=== PATIENT | male | born 1955 | race Caucasian/White ===

== ENCOUNTER → 2019-12-27 11:14 | Outpatient (BNVA) | payer OTHER, SELFPAY | PROVIDERS: PCP Internal Medicine; Visit Provider Urology | DX: Z76.89 Persons encountering health services in other specified circumstances (principal) ==

== ENCOUNTER → 2020-06-25 10:12 | Outpatient (BNVA) | payer OTHER, SELFPAY | PROVIDERS: PCP Internal Medicine; Visit Provider Urology ==

== ENCOUNTER → 2021-01-01 09:27 | Outpatient (BNVA) | payer MEDICARE, OTHER, SELFPAY | PROVIDERS: PCP Internal Medicine; Visit Provider Urology | DX: N40.1 Benign prostatic hyperplasia with lower urinary tract symptoms (principal); R97.20 Elevated prostate specific antigen [PSA] | CPT/HCPCS: Q3014 ==

== ENCOUNTER → 2021-06-29 12:02 | Outpatient (BNVA) | payer MEDICARE, OTHER, SELFPAY | PROVIDERS: PCP Internal Medicine; Visit Provider Urology | DX: N40.1 Benign prostatic hyperplasia with lower urinary tract symptoms (principal); R97.20 Elevated prostate specific antigen [PSA] | CPT/HCPCS: Q3014 ==

== ENCOUNTER → 2021-12-31 08:54 | Outpatient (BNVA) | payer MEDICARE, OTHER, SELFPAY | PROVIDERS: PCP Internal Medicine; Visit Provider Urology | DX: R97.20 Elevated prostate specific antigen [PSA] (principal); N40.2 Nodular prostate without lower urinary tract symptoms | CPT/HCPCS: 51798; 99212 ==

== ENCOUNTER → 2022-07-07 08:33 | Outpatient (BNVA) | payer MEDICARE, OTHER, SELFPAY | PROVIDERS: PCP Internal Medicine; Visit Provider Urology | DX: N40.2 Nodular prostate without lower urinary tract symptoms (principal) | CPT/HCPCS: 51798; 99212 ==

== ENCOUNTER 2023-01-11 08:33 | Outpatient (AMB) | payer MEDICARE, OTHER, SELFPAY ==
--- NOTE | 2023-01-11 08:36 | A.OFFVIS_ITS ---
Intake Intake Visit Reasons: 6m/PSA/MRI(psa?) Intake Note: Patient is present for PSA & MRI Results: Results: 05/25/22- Total PSA: 4.0 Free PSA: 0.6 Urology Med: Finasteride Antibiotic Allergy: Penicillin Blood Thinner: None Advertising Assistant Manager Required: No Accompanied by: Self / Same As Patient Allergies penicillin V Allergy (Unknown, Verified 01/11/23 08:36) Unknown HPI HPI Comments History of Present Illness Details Julio is a very pleasant male. He is a patient of Dr. Antonio. He is seen for the following urologic conditions - BPH - elevated PSA PSA rise to 5.6 Prostate MRI with 1.2 cm lesion Recommend targeted MRI ultrasound prostate fusion biopsy Procedure discussed Will be organized Elevated PSA/Abnormal GALLITO: He presents for further evaluation of elevated PSA. Current management is medication with finasteride Laboratory investigations include a total PSA evaluation - 12/30 6.3, 11% free no volume done - 06/30 4.9 F 16%, 12/31 5.3 - 08/01 4.8, 11/01 4.3 14%, 12/01 Urine DNA score < 20 so average risk for CaP, 01/31 5.2 19%, 06/02 5.1 20%, 12/02 4.4, 06/03 4.9, 01/03 4.5 17%, 06/04 4.3, 12/04 4.6, 07/05 4.0 F 0.6 (15%), 01/05 5.6 Imaging investigations include a transrectal ultrasound No RBUS - 04/30 Prostate Volume 70gm, PVR 250cc - MRI 1.2 cm PI-RADS 4 lesion - R PZ PL, R TZ Mid A TRUS biopsy has not been performed His current IPSS IPSS Score 16 Symptoms include 04/02 , frequency, urgency, weak stream, nocturia, x 2, and are worsening 12/31 , incomplete emptying, weak stream, nocturia, and are improving. Therapeutic plan will be targeted prostate biopsy [facility] Medical History Bladder outlet obstruction Difficulty in urination Elevated PSA Enlarged prostate Feeling of incomplete bladder emptying Hernia Melanoma UTI (urinary tract infection) Weak urinary stream Surgical History History of surgery Family History Other Prostate cancer Review of Systems Const Denies chills and Denies fever(s) Card Reports no additional complaints and Denies syncope Resp Denies cough GI Denies abdominal pain and Denies heartburn Reports as per HPI and Denies change in libido Neuro Denies syncope Psych Denies change in libido Endo Denies change in libido Physical Exam Const General: cooperative, healthy appearing, comfortable and no acute distress Orientation/consciousness: patient oriented x3 HEENT Face and sinus: Yes normal facial exam Mouth: moist mucous membranes Neck Neck: Yes normal visual inspection, Yes full ROM and Yes trachea midline Chest Chest palpation & inspection: normal inspection of the chest Resp Effort & Inspection: normal respiratory effort, able to speak in complete sentences and no respiratory distress GI Inspection: Yes normal to inspection Back/Spine/Pelvis Cervical Spine: normal cervical lordosis Thoracic/Lumbar Spine: thoracic and lumbar spine normal to inspection Skin General skin exam: no rashes or lesions noted Neuro General: patient oriented x3, gait normal, tone normal and moves all extremities Extrem General: Yes normal to inspection and Yes capillary refill normal Assessment & Plan Assessment & Plan (1) Prostate nodule: Code(s): N40.2 - Nodular prostate without lower urinary tract symptoms (2) Elevated PSA: Code(s): R97.20 - Elevated prostate specific antigen [PSA] Plan Risks, benefits and alternatives to therapy were discussed. These include but are not limited to infection, bleeding, damage to local organs and tissues, need for further interventions. Anesthetic risks regarding cardiac arrhythmia, blood clots, and potential mortality were discussed. The patient understands the typical recovery time and the outpatient nature of the procedure. After consideration of these risks the patient gives full informed consent and they wish to move ahead with the procedure. MRI ultrasound fusion biopsy Patient Instructions: Imaging studies, laboratory and physical exam results were discussed and reviewed in detail. No major barriers to patient understanding were identified. An opportunity to ask questions regarding the treatment plan was provided. All questions were answered. The patient expressed understanding and agreement with the above treatment plan. The patient is aware they should contact our office by phone for worsening of their current condition or the appearance of new urologic symptoms. Compliance is encouraged with any medications and followup testing that is ordered. It is a privilege to participate in the urologic care of your patient. If you have any questions or concerns regarding treatment for the above conditions, or other urologic issues, please do not hesitate to contact me. The office telephone contact is [phone]. This note is constructed using voice recognition software. While every effort has been made to ensure accuracy shoe dresser errors may have been included. Yours sincerely, Dr Gideon Ng MD, ANH [facility] - Urology Providers of Expert, Compassionate Care for the Genitourinary System Coding Level of Care Code Est Pt Level 4 (07865) Diagnoses Prostate nodule N40.2 Elevated PSA R97.20
== END 2023-01-11 09:27 | disposition home or self-care (01) ==
PROVIDERS: Visit Provider Urology
DX: N40.2 Nodular prostate without lower urinary tract symptoms (principal); R97.20 Elevated prostate specific antigen [PSA]
CPT/HCPCS: 99214

== ENCOUNTER → 2023-01-11 08:33 | Outpatient (BNVA) | payer MEDICARE, OTHER, SELFPAY | PROVIDERS: Visit Provider Urology | DX: N40.2 Nodular prostate without lower urinary tract symptoms (principal); R97.20 Elevated prostate specific antigen [PSA] | CPT/HCPCS: 99212 ==

== ENCOUNTER 2023-03-06 09:18 | Day surgery (SDC) | payer MEDICARE, OTHER, SELFPAY ==
--- NOTE | 2023-03-03 10:54 | HO.ANESPROP2 ---
Documented by User: Lara Rudolph NP 03/03/23 10:54 HPI - Anesthesia Eval Consult details Narrative: 67yo M for Targeted Prostate Needle Biopsy PMFSH Active Problems Active Problems: All Active Problems (Updated 03/02/23 @ 10:01 by Apple Triplett, TIBURCIO) Prostate nodule (Acute) Feeling of incomplete bladder emptying (Acute) Urinary urgency (Acute) Weak urinary stream (Acute) BPH loc w urin obs/LUTS (Acute) Elevated PSA (Acute) Past Medical History Medical History Hx of polycythemia vera Leg fracture, right Hx of melanoma of skin Peptic ulcer Difficulty in urination Enlarged prostate UTI (urinary tract infection) Hernia Melanoma Weak urinary stream Feeling of incomplete bladder emptying Bladder outlet obstruction Elevated PSA Family History Family History Other Prostate cancer Surgical History Surgical History Hx of wisdom tooth extraction History of facial surgery H/O esophagogastroduodenoscopy Hx of colonoscopy Hx of hernia repair Social History Social History Patient Tobacco Use Status: Never used Tobacco Are you DNR?: No Advance Directives: No Advance Directives Information Provided: Yes Nutrition Risks: No Nutritional Risk Meds Allergies Allergy/AdvReac Type Severity Reaction Status Date / Time penicillin V Allergy Intermediate Hives Verified 03/06/23 09:55 Home Medications Medication Instructions Recorded Confirmed Last Taken Type omeprazole 20 mg capsule,delayed 20 mg PO BID 06/25/20 03/02/23 03/05/23 History release Assessment and Plan Assessment Anesthesia Assessment: Chart Reviewed Documented by User: La Nena Adler MD 03/06/23 10:39 PMFSH Active Problems Active Problems: All Active Problems (Updated 03/02/23 @ 10:01 by Apple Triplett RN) Prostate nodule (Acute) Feeling of incomplete bladder emptying (Acute) Urinary urgency (Acute) Weak urinary stream (Acute) BPH loc w urin obs/LUTS (Acute) Elevated PSA (Acute) H/o Polycythemia vera. Has therapeutic phlebotomy. Used to be every 2 months but condition has improved. Last phlebotomy 9 months ago Past Medical History Medical History Hx of polycythemia vera Leg fracture, right Hx of melanoma of skin Peptic ulcer Difficulty in urination Enlarged prostate UTI (urinary tract infection) Hernia Melanoma Weak urinary stream Feeling of incomplete bladder emptying Bladder outlet obstruction Elevated PSA Family History Family History Other Prostate cancer Family history of problems with anesthesia: No Surgical History Surgical History Hx of wisdom tooth extraction History of facial surgery H/O esophagogastroduodenoscopy Hx of colonoscopy Hx of hernia repair History of Problems with Anesthesia: No Social History Social History Patient Tobacco Use Status: Never used Tobacco Are you DNR?: No Advance Directives: No Advance Directives Information Provided: Yes Nutrition Risks: No Nutritional Risk Meds Allergies Allergy/AdvReac Type Severity Reaction Status Date / Time penicillin V Allergy Intermediate Hives Verified 03/06/23 09:55 Home Medications Medication Instructions Recorded Confirmed Last Taken Type omeprazole 20 mg capsule,delayed 20 mg PO BID 06/25/20 03/02/23 03/05/23 History release Exam Height,Weight and Vital Signs: Height 5 ft 6 in Weight 58.967 kg Vital Signs Temp Pulse Resp BP Pulse Ox O2 Del Method 03/06/23 09:46 97.7 F 92 17 147/93 H 99 Room Air Airway Mallampati Class: II TM Dist: >3cm Neck ROM: Full Loose/Missing/Broken Teeth: Yes (Missing molars-extracted) Heart: RRR Lungs: CTAB Assessment and Plan Assessment Anesthesia Assessment: Anesthesia Plan Discussed Final Anesthetic Review Family History of Problems with Anesthesia: No History of Problems with Anesthesia: No NPO: Yes ASA Class: II Final Preanesthetic Review: No Changes in Pt Med Stat, Meds/Allgs Chart Reviewed, Consent Obtained/Reviewed and Anes Risks/Benef Reviewed Patient Risk: Intermediate Procedure Risk: Low Assessment/Block/Sedation in SS: Assess/Block/Sedation-SS Anesthetic Plan Anesthetic Plan: GA and TIVA Disposition: Standard PACU
[2023-03-06 09:31] VITALS: BMI 21.0
[2023-03-06 09:46] VITALS: BP 147/93; PULSE 92; RESP 17; TEMP 36.5; O2SAT 99
[2023-03-06] MEDS: Lactated Ringers 1,000 ML 100 ML IVCONT (09:55)
[2023-03-06] MEDS: levoFLOXacin 500 MG TABLET PO (09:55)
--- NOTE | 2023-03-06 10:26 | MHC.SHP ---
Pre-Procedural Eval Section A Date of Service: 03/06/23 The patient is an INPATIENT: No Changes since office visit: No Cold of Flu in the past 2 weeks, No New Medical Problems, No Changes in Medication and No Patient answered all questions The History & Physical has been completed within 30 days and I have reviewed it.: No Section B Chief Complaint: Elevated prostate specific antigen [PSA] Details of Present Illness: prior negative biopsy Relevant Social History: None Present Medications: see Short Stay Collaborative assessment Medical History: No relevant PMH History of Previous Operations: No relevant previous surgery Allergies: Allergies Allergy/AdvReac Type Severity Reaction Status Date / Time penicillin V Allergy Intermediate Hives Verified 03/06/23 09:55 Review of Systems Sugical H&P ROS: Negative: Constitution, Cardiovascular, Respiratory, Neurological, Psychiatric, Hem-Onc, Allergic/Immunologic, Gastrointestinal, Genitourinary, Musculoskeletal, Integumentary, Endocrine and Eyes/Ears/Nose/Throat Exam Surgical H&P Exam: Normal: HEENT, Normal: Heart, Normal: Lungs, Normal: Extremities, Normal: Abdomen, Normal: Skin and Normal: Neurological Plan Diagnosis/Plan: Unchanged (targeted prostate biopsy) I have reviewed the history and physical and performed a pertinent physical examination on my patient. No changes have occurred unless specified. Time Spent With Patient Time: Total time managing care of this patient today ____ minutes.
[2023-03-06 12:30] VITALS: BP 116/78; PULSE 84; RESP 18; TEMP 36.6; O2SAT 98
--- NOTE | 2023-03-06 12:34 | P.OP_ITS ---
Operative Note Operative Note Date of Service: 03/06/23 Narrative: Preoperative diagnosis: Elevated PSA Postoperative diagnosis: Elevated PSA Procedure: 1. transrectal ultrasound-guided pudendal nerve block 2. MRI-US fusion image registration performed 3. transperineal ultrasound-guided prostate biopsy 17 core including targets Surgeon: Dr. Gideon Ng Anesthetic: Sedation plus local Indications for procedure: Elevated PSA Procedure: After informed consent was verified, the patient was brought into the procedure area. Patient identity confirmed. Perioperative antibiotics confirmed. Safety pause time out performed. Anesthesia performed per protocol. Scrotum taped out of operative area. Iodine prep used. Perineal injection of local anesthetic. Digital guided prostate pudendal nerve block performed with 10 cc of 1% lidocaine. 5cc each side. Combination 10cc iodine with 50cc gel was mixed and placed in the rectum. Ultrasound probe was placed per rectum. Ultrasound probe stabilized on a prostate stepper with attached grid. [employer] software and hardware platform used for US image acquisition, US 3D model creation and MRI-US fusion image overlay. Ultrasound placement was made with external grid calibration for height and prostate diameter in both the transverse and longitudinal planes. Grid A-C covering right prostate and c-F covering left prostate. Numbers 1.0-2.5 covering posterior prostate and 2.5-4.0 covering anterior prostate. Once grid calibration was confirmed prostate ultrasound data acquisition was performed in the transverse fashion. The US images were registered to create model boundaries. A three dimensional ultrasound model was created using [employer] software. The model was reviewed against acquired US images. The planned needle targeting, based on prior acquisition of MRI imaging, was overlaid on the ultrasound images and targets confirmed through ultrasound re view. Adjustments were then made between real time and projected model targeting locations. Based on pre-planning evaluation 17 targets had been identified. These included 3 targets of the PI-RADS 3 prostate apex identified lesion/s. He tolerated the procedure well. Was transferred to stable condition in the PACU. Printed instructions regarding antibiotic use and common side effects such as l ow-grade temperature, potential infection and bleeding were given Pathology: 17 prostate biopsy CPT 01591 Modifier 22 for complexity of procedure execution (Perineal prostate biopsy) CPT 78608 US/MRI target fusion and manipulation in realtime
[2023-03-06 12:35] VITALS: BP 118/75; PULSE 83; RESP 16; O2SAT 98
[2023-03-06 12:40] VITALS: BP 121/77; PULSE 85; RESP 16; O2SAT 98
[2023-03-06 12:45] VITALS: BP 113/74; PULSE 82; RESP 16; O2SAT 98
[2023-03-06 12:54] VITALS: BP 128/84; PULSE 81; RESP 16; TEMP 36.4; O2SAT 98
== END 2023-03-06 13:59 | disposition home or self-care (01) ==
PROVIDERS: PCP Internal Medicine; Visit Provider Urology
PROC: (CPT 55700; principal; 2023-03-06 11:00)
DX: C61 Malignant neoplasm of prostate (principal); R97.20 Elevated prostate specific antigen [PSA]
CPT/HCPCS: 55706; 88305; 88344; J2704; J3010

== ENCOUNTER → 2023-03-06 09:18 | Outpatient (BNV) | payer MEDICARE, OTHER, SELFPAY | PROVIDERS: PCP Internal Medicine; Visit Provider Urology | DX: R97.20 Elevated prostate specific antigen [PSA] (principal) | CPT/HCPCS: 55700; 76942 ==

== ENCOUNTER 2023-03-16 11:06 | Outpatient (AMB) | payer MEDICARE, OTHER, SELFPAY ==
--- NOTE | 2023-03-16 11:26 | A.OFFVIS_ITS ---
Intake Intake Visit Reasons: Prostate bx Intake Note: Patient Is Present for Post Op Procedure Done: Prostate Biopsy Urology Med: Finasteride Antibiotic Allergy: Penicillin Blood Thinner: None Allergies penicillin V Allergy (Intermediate, Verified 03/06/23 09:55) Hives Medication List - Last Reconciled 03/16/23 by Gideon Ng MD finasteride 5 mg PO DAILY 90 days omeprazole 20 mg PO BID HPI HPI Comments History of Present Illness Details Julio is a very pleasant male. He is a patient of Dr. Antonio. He is seen for the following urologic conditions - BPH - elevated PSA - prostate cancer Discussed diagnosis of prostate cancer Prostate cancer - 03/08 - low volume, favorable intermediate risk grade 2 Elevated PSA 5.6 on finasteride a transrectal ultrasound No RBUS - 04/30 Prostate Volume 70gm, PVR 250cc - 12/05 50 g MRI 1.2 cm PI-RADS 4 lesion - R PZ PL, R TZ Mid Pathology [place] score: 7 (3+4) 20% (b 2.5) 6 (3+3) 20% (b 2.0) - right side Number cores positive: 2 Total number of cores: 18 % of tissue involved: 3% Periprostatic fat inv.: Not identified Seminal vesicle inv.: Not identified Perineural inv.: Present Lymphovascular invasion: Not identified Discussion regarding active surveillance versus intervention First step is Prolaris genetics, repeat PSA 3 months Elevated PSA/Abnormal GALLITO: He presents for further evaluation of elevated PSA. Current management is medication with finasteride Laboratory investigations include a total PSA evaluation - 12/30 6.3, 11% free no volume done - 06/30 4.9 F 16%, 12/31 5.3 - 08/01 4.8, 11/01 4.3 14%, 12/01 Urine DNA score < 20 so average risk for CaP, 01/31 5.2 19%, 06/02 5.1 20%, 12/02 4.4, 06/03 4.9, 01/03 4.5 17%, 06/04 4.3, 12/04 4.6, 07/05 4.0 F 0.6 (15%), 01/05 5.6 PFSH Medical History Hx of polycythemia vera Leg fracture, right Hx of melanoma of skin Peptic ulcer Difficulty in urination Enlarged prostate UTI (urinary tract infection) Hernia Melanoma Weak urinary stream Feeling of incomplete bladder emptying Bladder outlet obstruction Elevated PSA Surgical History Hx of wisdom tooth extraction History of facial surgery H/O esophagogastroduodenoscopy Hx of colonoscopy Hx of hernia repair Family History Other Prostate cancer Social History Patient Tobacco Use Status: Never used Tobacco Review of Systems Const Denies chills and Denies fever(s) Card Reports no additional complaints and Denies syncope Resp Denies cough GI Denies abdominal pain and Denies heartburn Reports as per HPI and Denies change in libido Neuro Denies syncope Psych Denies change in libido Endo Denies change in libido Physical Exam Const General: cooperative, healthy appearing, comfortable and no acute distress Orientation/consciousness: patient oriented x3 HEENT Face and sinus: Yes normal facial exam Mouth: moist mucous membranes Neck Neck: Yes normal visual inspection, Yes full ROM and Yes trachea midline Chest Chest palpation & inspection: normal inspection of the chest Resp Effort & Inspection: normal respiratory effort, able to speak in complete sentences and no respiratory distress GI Inspection: Yes normal to inspection Back/Spine/Pelvis Cervical Spine: normal cervical lordosis Thoracic/Lumbar Spine: thoracic and lumbar spine normal to inspection Skin General skin exam: no rashes or lesions noted Neuro General: patient oriented x3, gait normal, tone normal and moves all extremities Extrem General: Yes normal to inspection and Yes capillary refill normal Assessment & Plan Assessment & Plan (1) Prostate cancer: Code(s): C61 - Malignant neoplasm of prostate Plan Three-month follow-up Orders: Orders Prostate Specific Antigen 3 Months C61 - Malignant neoplasm of prostate Patient Instructions: Imaging studies, laboratory and physical exam results were discussed and reviewed in detail. No major barriers to patient understanding were identified. An opportunity to ask questions regarding the treatment plan was provided. All questions were answered. The patient expressed understanding and agreement with the above treatment plan. The patient is aware they should contact our office by phone for worsening of their current condition or the appearance of new urologic symptoms. Compliance is encouraged with any medications and followup testing that is ordered. It is a privilege to participate in the urologic care of your patient. If you have any questions or concerns regarding treatment for the above conditions, or other urologic issues, please do not hesitate to contact me. The office telephone contact is [phone]. This note is constructed using voice recognition software. While every effort has been made to ensure accuracy tape editor errors may have been included. Yours sincerely, Dr Gideon Ng MD, ANH [facility] - Urology Providers of Expert, Compassionate Care for the Genitourinary System Coding Level of Care Code Est Pt Level 4 (55484) Diagnoses Prostate cancer C61
== END 2023-03-16 12:05 | disposition home or self-care (01) ==
PROVIDERS: PCP Internal Medicine; Visit Provider Urology
DX: C61 Malignant neoplasm of prostate (principal)
CPT/HCPCS: 99213

== ENCOUNTER → 2023-03-16 11:06 | Outpatient (BNVA) | payer MEDICARE, OTHER, SELFPAY | PROVIDERS: PCP Internal Medicine; Visit Provider Urology | DX: C61 Malignant neoplasm of prostate (principal); Z98.890 Other specified postprocedural states | CPT/HCPCS: 99212 ==

== ENCOUNTER 2023-06-15 08:24 | Outpatient (AMB) | payer MEDICARE, OTHER, SELFPAY ==
--- NOTE | 2023-06-15 08:25 | MHC.OFFVIS ---
Intake Visit Reasons: 3M PSA(SET) Intake Note: Patient is Present for Telephone Follow Up For Urology Med: Finasteride Antibiotic Allergy:Penicillin Blood Thinner:None Allergies penicillin V Allergy (Intermediate, Verified 06/15/23 08:27) Hives Medication List - Last Reconciled 06/15/23 by Gideon Ng MD finasteride 5 mg PO DAILY 90 days omeprazole 20 mg PO BID HPI Comments Details: Julio is a very pleasant male. He is a patient of Dr. Antonio. He is seen for the following urologic conditions - BPH - elevated PSA - prostate cancer Telemedicine Evaluation 15 min Consultation Taste Guru Shubham Video Discussed recent result on 3 day week finasteride Has noticed return of symptoms We will go back to daily finasteride Discussed polaris result which shows support for active surveillance PSA 01/05 5.6, 07/06 6.8 Prostate cancer - 03/08 - low volume, favorable intermediate risk grade 2 Elevated PSA 5.6 on finasteride a transrectal ultrasound No RBUS - 04/30 Prostate Volume 70gm, PVR 250cc - 12/05 50 g MRI 1.2 cm PI-RADS 4 lesion - R PZ PL, R TZ Mid Pathology [place] score: 7 (3+4) 20% (b 2.5) 6 (3+3) 20% (b 2.0) - right side Number cores positive: 2 Total number of cores: 18 % of tissue involved: 3% Periprostatic fat inv.: Not identified Seminal vesicle inv.: Not identified Perineural inv.: Present Lymphovascular invasion: Not identified Prol[employer] Genetics Score 3.9 Supports recommendation for active surveillance 10yr DSM 3.0% Elevated PSA/Abnormal GALLITO: He presents for further evaluation of elevated PSA. Current management is medication with finasteride Laboratory investigations include a total PSA evaluation - 12/30 6.3, 11% free no volume done - 06/30 4.9 F 16%, 12/31 5.3 - 08/01 4.8, 11/01 4.3 14%, 12/01 Urine DNA score < 20 so average risk for CaP, 01/31 5.2 19%, 06/02 5.1 20%, 12/02 4.4, 06/03 4.9, 01/03 4.5 17%, 06/04 4.3, 12/04 4.6, 07/05 4.0 F 0.6 (15%), 01/05 5.6, 07/06 6.8 PFSH Medical History Hx of polycythemia vera Leg fracture, right Hx of melanoma of skin Peptic ulcer Difficulty in urination Enlarged prostate UTI (urinary tract infection) Hernia Melanoma Weak urinary stream Feeling of incomplete bladder emptying Bladder outlet obstruction Elevated PSA Surgical History Hx of wisdom tooth extraction History of facial surgery H/O esophagogastroduodenoscopy Hx of colonoscopy Hx of hernia repair Family History Other Prostate cancer Social History Patient Tobacco Use Status: Never used Tobacco Review of Systems Const All systems reviewed & are unremarkable except as noted in HPI and below Reports no additional complaints Resp Reports no additional complaints GI Reports no additional complaints Reports as per HPI Musc Reports no additional complaints Physical Exam Telemedicine evaluation Appropriate responses Regular breathing rate and rhythm HEENT Head: Yes normal to inspection Ears: hearing grossly normal bilaterally Eyes General: appearance normal, both eyes and all related structures Neck Neck: Yes normal visual inspection Chest Chest palpation & inspection: normal inspection of the chest Resp Effort & Inspection: normal respiratory effort and able to speak in complete sentences Telehealth Telehealth Telehealth Platform: [facility] Location of provider rendering services: practice address Location of patient: address on file Patient Identification confirmed using: Name, : Yes Telehealth method: video Patient verbally consented to treatment: Yes Patient verbally consented to billing insurance company: Yes Patient informed of any privacy concerns related to visit: Yes Minutes spent on Phone/Video with Pt.: 15 Assessment & Plan Assessment & Plan (1) Prostate cancer: Code(s): C61 - Malignant neoplasm of prostate Category: Medical (2) BPH loc w urin obs/LUTS: Code(s): N40.1 - Benign prostatic hyperplasia with lower urinary tract symptoms Category: Medical Plan Finasteride daily 4 month PSA Orders: Orders PSA,Total (Free>4and<10) 4 Months C61 - Malignant neoplasm of prostate Patient Instructions: Imaging studies, laboratory and physical exam results were discussed and reviewed in detail. No major barriers to patient understanding were identified. An opportunity to ask questions regarding the treatment plan was provided. All questions were answered. The patient expressed understanding and agreement with the above treatment plan. The patient is aware they should contact our office by phone for worsening of their current condition or the appearance of new urologic symptoms. Compliance is encouraged with any medications and followup testing that is ordered. It is a privilege to participate in the urologic care of your patient. If you have any questions or concerns regarding treatment for the above conditions, or other urologic issues, please do not hesitate to contact me. The office telephone contact is [phone]. This note is constructed using voice recognition software. While every effort has been made to ensure accuracy cleaner and presser errors may have been included. Yours sincerely, Dr Gideon Ng MD, ANH [facility] - Urology Providers of Expert, Compassionate Care for the Genitourinary System Coding Level of Care Code Tele Est Pt Level 4 (38606) Complex EM visit Add On G2211 Diagnoses Prostate cancer C61 BPH loc w urin obs/LUTS N40.1
== END 2023-06-15 08:56 | disposition home or self-care (01) ==
LOC: HO.HUSH 08:24
PROVIDERS: PCP Internal Medicine; Visit Provider Urology
DX: C61 Malignant neoplasm of prostate (principal); N40.1 Benign prostatic hyperplasia with lower urinary tract symptoms
CPT/HCPCS: 99213; G2211

== ENCOUNTER → 2023-06-15 08:24 | Outpatient (BNVA) | payer MEDICARE, OTHER, SELFPAY | PROVIDERS: PCP Internal Medicine; Visit Provider Urology ==

== ENCOUNTER 2023-09-14 09:47 | Outpatient (AMB) | payer MEDICARE, OTHER, SELFPAY ==
--- NOTE | 2023-09-14 10:20 | A.OFFVIS_ITS ---
Intake Visit Reasons: 4M Follow Up- PSA(set) Intake Note: Patient is Present for Follow Up PSA/Med Review Urology Medication: Finasteride Antibiotic Allergies:Penicillin Blood Thinners:None Patient states that he would like to discuss his medication schedule for Finasteride, States that he does better when he takes Finasteride Daily. States that if he takes the Finasteride 3 times a week he experiences alot of urinary frequency Hotel Dining Room Cashier Required: No Accompanied by: Self / Same As Patient Allergies penicillin V Allergy (Intermediate, Verified 09/14/23 10:25) Hives HPI Comments Details: Julio is a very pleasant male. He is a patient of Dr. Antonio. He is seen for the following urologic conditions - BPH - elevated PSA - prostate cancer PSA with appropriate drop using finasteride down to 3.7 PSA 01/05 5.6, 07/06 6.8, 10/06 3.7 16% Prostate cancer - 03/08 - low volume, favorable intermediate risk grade 2 Elevated PSA 5.6 on finasteride a transrectal ultrasound No RBUS - 04/30 Prostate Volume 70gm, PVR 250cc - 12/05 50 g MRI 1.2 cm PI-RADS 4 lesion - R PZ PL, R TZ Mid Pathology [place] score: 7 (3+4) 20% (b 2.5) 6 (3+3) 20% (b 2.0) - right side Number cores positive: 2 Total number of cores: 18 % of tissue involved: 3% Periprostatic fat inv.: Not identified Seminal vesicle inv.: Not identified Perineural inv.: Present Lymphovascular invasion: Not identified Prolaris Genetics Score 3.9 Supports recommendation for active surveillance 10yr DSM 3.0% Elevated PSA/Abnormal GALLITO: He presents for further evaluation of elevated PSA. Current management is medication with finasteride Laboratory investigations include a total PSA evaluation - 12/30 6.3, 11% free no volume done - 06/30 4.9 F 16%, 12/31 5.3 - 08/01 4.8, 11/01 4.3 14%, 12/01 Urine DNA score < 20 so average risk for CaP, 01/31 5.2 19%, 06/02 5.1 20%, 12/02 4.4, 06/03 4.9, 01/03 4.5 17%, 06/04 4.3, 12/04 4.6, 07/05 4.0 F 0.6 (15%), 01/05 5.6, 07/06 6.8 PFSH Medical History Hx of polycythemia vera Leg fracture, right Hx of melanoma of skin Peptic ulcer Difficulty in urination Enlarged prostate UTI (urinary tract infection) Hernia Melanoma Weak urinary stream Feeling of incomplete bladder emptying Bladder outlet obstruction Elevated PSA Surgical History Hx of wisdom tooth extraction History of facial surgery H/O esophagogastroduodenoscopy Hx of colonoscopy Hx of hernia repair Family History Other Prostate cancer Social History Patient Tobacco Use Status: Never used Tobacco Review of Systems Const Denies chills and Denies fever(s) Card Reports no additional complaints and Denies syncope Resp Denies cough GI Denies abdominal pain and Denies heartburn Reports as per HPI and Denies change in libido Neuro Denies syncope Psych Denies change in libido Endo Denies change in libido Physical Exam Const General: cooperative, healthy appearing, comfortable and no acute distress Orientation/consciousness: patient oriented x3 HEENT Face and sinus: Yes normal facial exam Mouth: moist mucous membranes Neck Neck: Yes normal visual inspection, Yes full ROM and Yes trachea midline Chest Chest palpation & inspection: normal inspection of the chest Resp Effort & Inspection: normal respiratory effort, able to speak in complete sentences and no respiratory distress GI Inspection: Yes normal to inspection Back/Spine/Pelvis Cervical Spine: normal cervical lordosis Thoracic/Lumbar Spine: thoracic and lumbar spine normal to inspection Skin General skin exam: no rashes or lesions noted Neuro General: patient oriented x3, gait normal, tone normal and moves all extremities Extrem General: Yes normal to inspection and Yes capillary refill normal Assessment & Plan Assessment & Plan (1) Elevated PSA: Code(s): R97.20 - Elevated prostate specific antigen [PSA] Category: Medical (2) BPH loc w urin obs/LUTS: Code(s): N40.1 - Benign prostatic hyperplasia with lower urinary tract symptoms Category: Medical (3) Prostate cancer: Code(s): C61 - Malignant neoplasm of prostate Category: Medical Plan Six-month follow-up PSA Orders: Orders PSA,Total (Free>4and<10) 6 Months C61 - Malignant neoplasm of prostate Patient Instructions: Imaging studies, laboratory and physical exam results were discussed and reviewed in detail. No major barriers to patient understanding were identified. An opportunity to ask questions regarding the treatment plan was provided. All questions were answered. The patient expressed understanding and agreement with the above treatment plan. The patient is aware they should contact our office by phone for worsening of their current condition or the appearance of new urologic symptoms. Compliance is encouraged with any medications and followup testing that is ordered. It is a privilege to participate in the urologic care of your patient. If you have any questions or concerns regarding treatment for the above conditions, or other urologic issues, please do not hesitate to contact me. The office telephone contact is [phone]. This note is constructed using voice recognition software. While every effort has been made to ensure accuracy sr. director errors may have been included. Yours sincerely, Dr Gideon Ng MD, ANH [facility] - Urology Providers of Expert, Compassionate Care for the Genitourinary System Coding Level of Care Code Est Pt Level 3 (06085) Diagnoses Elevated PSA R97.20 BPH loc w urin obs/LUTS N40.1 Prostate cancer C61
== END 2023-09-14 11:15 | disposition home or self-care (01) ==
PROVIDERS: PCP Internal Medicine; Visit Provider Urology
DX: R97.20 Elevated prostate specific antigen [PSA] (principal); N40.1 Benign prostatic hyperplasia with lower urinary tract symptoms; C61 Malignant neoplasm of prostate
CPT/HCPCS: 99213

== ENCOUNTER → 2023-09-14 09:47 | Outpatient (BNVA) | payer MEDICARE, OTHER, SELFPAY | PROVIDERS: PCP Internal Medicine; Visit Provider Urology | DX: R97.20 Elevated prostate specific antigen [PSA] (principal); C61 Malignant neoplasm of prostate; N40.1 Benign prostatic hyperplasia with lower urinary tract symptoms; R35.0 Frequency of micturition | CPT/HCPCS: 99212 ==

== ENCOUNTER → 2024-03-21 09:41 | Outpatient (BNVA) | payer MEDICARE, OTHER, SELFPAY | PROVIDERS: PCP Internal Medicine; Visit Provider Urology ==

== ENCOUNTER 2024-09-18 10:59 | Outpatient (AMB) | payer MEDICARE, OTHER, SELFPAY ==
--- NOTE | 2024-09-18 11:10 | MHC.OFFVIS ---
Intake Visit Reasons: 6m/PSA Intake Note: Patient is present for 6M PSA Urology Medication:FINASTERIDE Antibiotic Allergy:PENICILLIN Blood Thinner:NONE PVR:24ml Building Repair Maintenance Supervisor Required: No Allergies penicillin V Allergy (Intermediate, Verified 09/18/24 11:12) [place]omkar ISABEL Comments Details: Julio is a very pleasant male. He is a patient of Dr. Antonio. He is seen for the following urologic conditions - lower urinary tract symptoms - elevated PSA - prostate cancer Six-month follow-up PSA continues to remain noisy but stable Good control with lower urinary tract symptoms using finasteride PSA 01/05 5.6, 07/06 6.8, 10/06 3.7 16%, 03/09 5.0, 09/06 4.7 Urinary Symptoms Review - Frequency of urination has improved with finasteride treatment. - Weak urinary stream, though improved compared to younger years. - Nocturnal symptoms not specifically discussed. Lower urinary tract symptoms Previously on combination therapy Currently well controlled with daily finasteride Prostate cancer - 03/08 - low volume, favorable intermediate risk grade 2 Elevated PSA 5.6 on finasteride a transrectal ultrasound No RBUS - 04/30 Prostate Volume 70gm, PVR 250cc - 12/05 50 g MRI 1.2 cm PI-RADS 4 lesion - R PZ PL, R TZ Mid Pathology [place] score: 7 (3+4) 20% (b 2.5) 6 (3+3) 20% (b 2.0) - right side - consistent with imaging Number cores positive: 2 Total number of cores: 18 % of tissue involved: 3% Periprostatic fat inv.: Not identified Seminal vesicle inv.: Not identified Perineural inv.: Present Lymphovascular invasion: Not identified Prolaris Genetics Score 3.9 Supports recommendation for active surveillance 10yr DSM 3.0% Elevated PSA/Abnormal GALLITO: He presents for further evaluation of elevated PSA. Current management is medication with finasteride Laboratory investigations include a total PSA evaluation - 12/30 6.3, 11% free no volume done - 06/30 4.9 F 16%, 12/31 5.3 - 08/01 4.8, 11/01 4.3 14%, 12/01 Urine DNA score < 20 so average risk for CaP, 01/31 5.2 19%, 06/02 5.1 20%, 12/02 4.4, 06/03 4.9, 01/03 4.5 17%, 06/04 4.3, 12/04 4.6, 07/05 4.0 F 0.6 (15%), 01/05 5.6, 07/06 6.8 PFSH Medical History Hx of polycythemia vera Leg fracture, right Hx of melanoma of skin Peptic ulcer Difficulty in urination Enlarged prostate UTI (urinary tract infection) Hernia Melanoma Weak urinary stream Feeling of incomplete bladder emptying Bladder outlet obstruction Elevated PSA Surgical History Hx of wisdom tooth extraction History of facial surgery H/O esophagogastroduodenoscopy Hx of colonoscopy Hx of hernia repair Family History Other Prostate cancer Social History Patient Tobacco Use Status: Never used Tobacco Assessment & Plan Assessment & Plan (1) BPH loc w urin obs/LUTS: Code(s): N40.1 - Benign prostatic hyperplasia with lower urinary tract symptoms Category: Medical (2) Prostate cancer: Code(s): C61 - Malignant neoplasm of prostate Category: Medical Plan Plan 1. Prostate Cancer - Monitor PSA biannually. - Schedule prostate MRI in six months. 2. Benign Prostatic Hyperplasia - Consider laser procedure if symptoms progress. Discussion Notes I discussed with the patient the current status of his prostate cancer, noting the slight decrease in PSA levels. We agreed to continue monitoring PSA levels every six months and to repeat the prostate MRI in six months to check for any changes. I explained the potential need for a repeat biopsy depending on the MRI results. We also discussed the management of benign prostatic hyperplasia, including the option of a green light laser prostate procedure if urinary symptoms worsen. Patient Instructions - Continue taking finasteride as prescribed. - Monitor urinary stream and report any significant changes. - Schedule follow-up appointment in six months for PSA and MRI results review. Orders: Orders MR Prostate wo/w con 6 Months C61 - Malignant neoplasm of prostate PSA,Total (Free>4and<10) 6 Months C61 - Malignant neoplasm of prostate Patient Instructions: This note is constructed using voice recognition software. While every effort has been made to ensure accuracy display and banner designer errors may have been included. Imaging studies, laboratory and physical exam results were discussed and reviewed in detail. No major barriers to patient understanding were identified. An opportunity to ask questions regarding the treatment plan was provided. All questions were answered. The patient expressed understanding and agreement with the above treatment plan. The patient is aware they should contact our office by phone for worsening of their current condition or the appearance of new urologic symptoms. Compliance is encouraged with any medications and followup testing that is ordered. It is a privilege to participate in the urologic care of your patient. If you have any questions or concerns regarding treatment for the above conditions, or other urologic issues, please do not hesitate to contact me. The office telephone contact is [phone]. Sincerely, Dr Gideon Ng MD, ANH [facility] - Urology Compassionate Specialist Care for the Genitourinary System Coding Level of Care Code Est Pt Level 3 (94384) Complex EM visit Add On G2211 Diagnoses BPH loc w urin obs/LUTS N40.1 Prostate cancer C61
--- OUTSIDE RECORDS SUMMARY | 2024-09-18 11:42 | XMS_ITS | Clinical Summary ---
Author Organization [facility] Address [address] [place] [address] Phone Care Team Providers Care Pelletizer Operator Name Role Phone Hua Antonio MD Primary Care Provider [phone] Allergies Active Allergy Reactions Criticality Noted Date Comments Penicillins 11/21/2016 Medications ascorbic acid (VITAMIN C) 1,000 mg tablet Take 1,000 mg by mouth daily. Active cholecalciferol (VITAMIN D-3) 25 mcg (1,000 unit) tablet Take 1,000 Units by mouth daily. Active finasteride (PROSCAR) 5 mg tablet Take 5 mg by mouth daily. Active ibuprofen (ADVIL,MOTRIN) 200 mg tablet Take 200 mg by mouth every 6 (six) hours as needed for pain. Active zinc sulfate (ZINC-15 ORAL) Take by mouth. Active cyanocobalamin, vitamin B-12, 5,000 mcg tablet,disinteg rating Dissolve on top of the tongue. Active omeprazole (PriLOSEC) [address] capsule Take 1 capsule (20 mg total) by mouth 2 (two) times a day. Do not crush or chew. 180 capsule 1 5 Active omeprazole (PriLOSEC) [address] capsule Take 1 capsule (20 mg total) by mouth 1 (one) time each day. Do not crush or chew. 90 each 1 5 09/13/19 25 Discontinu ed(Reorder ) Active Problems Problem Noted Date Diagnosed Date Polycythemia 05/23/2024 Chronic pain of right knee 05/23/2024 Gastroesophageal reflux disease 05/23/2024 Surgical History Surgery Date Site/Laterality Comments HERNIA REPAIR WISDOM TOOTH EXTRACTION Bilateral Medical History Medical History Date Comments Polycythemia DX:Polycythemia Diverticulosis DX:Diverticulosi s Hyperlipidemia DX:Hyperlipidemi a Malignant neoplasm of prosta te (CMS/HCC V24, CMS/HCC V28) DX:Malignant neoplasm of pro state (HCC) Internal hemorrhoids DX:Internal hemorrhoids Melanoma (CMS/HCC V24, CMS/HCC V28) on face Family History Medical History Relation Name Comments No Known Problems Brother Polycythemia Father Prostate cancer Father radiation Skin cancer Father dementia Fibromyalgia Mother Other Mother family hx of di abetes Atrial fibrillation Sister ? Melanoma Sister Thyroid disease Sister Relation Name Status Comments Brother Alive Father Mother Sister Alive x4 Social History Tobacco Use Types Packs/Day Years Used Date Smoking Tobacco: Never Smokeless Tobacco: Never Tobacco Cessation:Counseling Given: Not Answered Alcohol Use Standard Drinks/Week Comments Yes 2 (1 standard drink = 0.6 oz pur e alcohol) Housing Instability Answer Date Recorde d Are you worried that in the next 2 months you may not have stable housing? No 02/23/2024 Food Access & Nutrition Answer Date Rec orded Do you have access to a vari ety of food including fruits and vegetables? Yes 02/15/2024 Access to Healthcare Answer Date Record ed Within the last 3 months, ho w many times did you visit the emergency department for your medical care? 0 02/15/2024 Health Literacy Answer Date Recorded How often do you need to hav e someone help you when you read instructions, pamphlets, or other written material from your doctor or pharmacy? Never 02/23/2024 Caregiver: How often do you need to have someone help you when you read instructions, pamphlets, or other written material from your doctor or pharmacy? Not on file 02/23/2024 Financial Risk Answer Date Recorded How hard is it for you to pa y for the very basics like food, housing, medical care, and air conditioning / heating? Not very hard 02/23/2024 Transportation Answer Date Recorded Has the lack of transportati on kept you from meetings, work, or from getting things needed for daily living? No Has the lack of transportati on kept you from medical appointments or from getting medications? No 02/23/2024 Social Isolation Answer Date Recorded How often do you feel lonely or isolated from th ose around you? Never 02/23/2024 Food Risk Answer Date Recorded Within the past 12 months we worried whether our food would run out before we got money to buy more. Never true 02/23/2024 Within the past 12 months th e food we bought just didn't last and we didn't have money to get more. Never true 02/23/2024 Dependent Care Answer Date Recorded Do you need help finding or paying for care for your loved ones. For example, exceptional children teacher assistant or elderly care for an older adult? No 02/23/2024 Education Answer Date Recorded Do you think completing more education or training, like finishing a GED, going to college, or learning a trade, would be helpful for you? No 02/23/2024 Employment and Income Answer Date Recor ded During the last four weeks, have you been actively looking for work? No 02/23/2024 Living Situation Answer Date Recorded What is your living situation? 0 02/23/2024 Sex and Gender Information Value Date Recorded Sex Assigned at Not on file Legal Sex Male 3:41 AM EST Gender Identity Not on file Sexual Orientation Not on file Obstetrics History Last Filed Vital Signs Vital Sign Reading Time Taken Comments Blood Pressure 144/80 05/23/2024 9:19 AM EDT Pulse 92 05/23/2024 9:10 AM EDT Temperature 36.1 C (96.9 F) 04/23/2024 9:18 AM EDT Respiratory Rate - - Oxygen Saturation 93% 04/23/2024 9:18 AM EDT Inhaled Oxygen Concentration - - Weight 62.6 kg (137 lb 14.4 oz) 05/23/2024 9:10 AM EDT Height 167.6 cm (5' 6 ) 05/23/2024 9:10 AM EDT Body Mass Index 22.26 05/23/2024 9:10 AM EDT Plan of Treatment Health Maintenance Due Date Last Done Comments Zoster Vaccines (1 of 2) 05/13/1974 Pneumococcal Vaccine: 50+ Years (1 of 1 - PCV) 05/13/2005 Colorectal Cancer Screening: Colonoscopy 01/16/2022 Hepatitis C Screening 01/16/2022 COVID-19 Vaccine ( season) 2023 01/12/2022, 03/23/2021, 08/20/2020, Additional history exists Influenza Vaccine (#1) 2024 9, 11/14/2017, 11/19/2016, Additional history exists Medicare Annual Wellness Visit 02/22/2025 02/23/2024 Social Influencers of Health Screening 02/22/2025 02/23/2024 Falls Risk Assessment 05/23/2025 05/23/2024, 025 Hypertension/CHF/CAD Annual BMP Blood Test 05/30/2025 05/30/2024 DTaP,Tdap,and Td Vaccines (2 - Td or Tdap) 05/27/2027 05/26/2017 Cholesterol Screening (Lipid Panel) 05/30/2029 05/30/2024 RSV Immunization Adult Patients (1 - 1-dose 75+ series) 05/13/2030 Depression Screening Completed 05/17/2024 HIB Vaccines Aged Out No longer eligi ble based on patient's age to complete this topic HPV Vaccines Aged Out No longer eligi ble based on patient's age to complete this topic Hepatitis A Vaccines Aged Out No long er eligible based on patient's age to complete this topic Hepatitis B Vaccines Aged Out No long er eligible based on patient's age to complete this topic IPV Vaccines Aged Out No longer eligi ble based on patient's age to complete this topic MMR Vaccines Aged Out No longer eligi ble based on patient's age to complete this topic Meningococcal ACWY Vaccine Aged Out N o longer eligible based on patient's age to complete this topic Meningococcal B Vaccine Aged Out No l onger eligible based on patient's age to complete this topic RSV Immunization Patients Under 20 months Aged Out No longer eligible based on patient's age to complete this topic Varicella Vaccines Aged Out No longer eligible based on patient's age to complete this topic Procedures Procedure Name Priority Date/Time Associated Diagnosis Comments PROSTATE SPECIFIC ANTIGEN SCREEN Routine 08/23/2024 9:29 AM EDT Malignant neoplasm of prostate ([facility] V24, [facility] V28) BASIC METABOLIC PANEL Routine 05/30/2024 8:43 AM EDT Elevated blood pressure reading in office with white coat syndrome, without diagnosis of hypertension LIPID PANEL WITH REFLEX TO DIRECT LDL Routine 05/30/2024 8:43 AM EDT Polycythemia Elevated blood pressure reading in office with white coat syndrome, without diagnosis of hypertension Essential (primary) hypertension from Last 3 Months or Most Recently Relevant to Health Maintenance Results * (ABNORMAL) Prostate specific antigen screen (08/23/2024 9:29 AM EDT) PSA 4.70(H) 0.00 - 4.00 ng/mL LAB CHEMISTRY METHOD 08/23/2024 2:35 PM EDT [facility] Blood Venous blood specimen / Unknown Venipuncture / Unknown 08/23/2024 9:29 AM EDT 08/23/2024 9:29 AM EDT Narrative [facility] - 08/23/2024 2:35 PM EDT The Siemens Advia Centaur Chemiluminescent Immunoassay is used. Results obtained with different assay methods or kits cannot be used interchangeably. Results cannot be interpreted as absolute evidence of the presence or absence of malignant disease. us Gideon Ng MD LAB BLOOD ORDERABLES Final Re sult [facility] [address] [place] [address], [place] [phone] * (ABNORMAL) Lipid panel with reflex to direct LDL (05/30/2024 8:43 AM EDT) Cholesterol 197 0 - 200 mg/dL LAB CHEMISTRY METHOD 05/30/2024 2:00 PM EDT [facility] Triglycerides 115 0 - 150 mg/dL LAB CHEMISTRY METHOD 05/30/2024 2:00 PM EDT [facility] HDL 63 >=40 mg/dL LAB CHEMISTRY METHOD 05/30/2024 2:00 PM EDT [facility] LDL Calculated 111(H) 0 - 100 mg/dL LAB CHEMISTRY METHOD 05/30/2024 2:00 PM [facility] VLDL Cholesterol Jac 23 mg/dL LAB CHEMISTRY METHOD 05/30/2024 2:00 PM [facility] Non HDL Chol. (LDL+VLDL) 134 <145 mg/dL LAB CHEMISTRY METHOD 05/30/2024 2:00 PM [facility] Chol/HDL Ratio 3.1 0.0 - 4.4 LAB CHEMISTRY METHOD 05/30/2024 2:00 PM [facility] Blood Venous blood specimen / Unknown Venipuncture / Unknown 05/30/2024 8:43 AM EDT 05/30/2024 8:43 AM EDT us Hua Antonio MD LAB BLOOD ORDERABLES Final Res ult [facility] [address] [place] [address], * Basic metabolic panel (05/30/2024 8:43 AM EDT) Sodium 137 133 - 145 mmol/L LAB CHEMISTRY METHOD 05/30/2024 2:00 PM [facility] Potassium 4.1 3.5 - 5.5 mmol/L LAB CHEMISTRY METHOD 05/30/2024 2:00 PM [facility] Chloride 102 96 - 110 mmol/L LAB CHEMISTRY METHOD 05/30/2024 2:00 PM [facility] CO2 29 21 - 32 mmol/L LAB CHEMISTRY METHOD 05/30/2024 2:00 PM [facility] Anion Gap 6 3 - 11 LAB CHEMISTRY METHOD 05/30/2024 2:00 PM [facility] Glucose 88 70 - 100 mg/dL LAB CHEMISTRY METHOD 05/30/2024 2:00 PM [facility] BUN 20 5 - 25 mg/dL LAB CHEMISTRY METHOD 05/30/2024 2:00 PM EDT [facility] Creatinine 0.89 0.70 - 1.30 mg/dL LAB CHEMISTRY METHOD 05/30/2024 2:00 PM EDT [facility] eGFR 93 >=60 mL/min/1. 73m2 LAB CHEMISTRY METHOD 05/30/2024 2:00 PM EDT [facility] Comment:Calculation based on the Chronic Kidney Disease Epidemiology Collaboration (CKD-EPI) equation refit without adjustment for race. BUN/Creatinine Ratio 22.5 LAB CHEMISTRY METHOD 05/30/2024 2:00 PM EDT [facility] Calcium 9.3 8.5 - 10.5 mg/dL LAB CHEMISTRY METHOD 05/30/2024 2:00 PM EDT [facility] Blood Venous blood specimen / Unknown Venipuncture / Unknown 05/30/2024 8:43 AM EDT 05/30/2024 8:43 AM EDT us Hua Antonio MD LAB BLOOD ORDERABLES Final Res ult [facility] [address] [place] [address], from Last 3 Months or Most Recently Relevant to Health Maintenance Insurance MEDICARE [facility] Care Teams Pelletizer Operator Relationship Specialty Start Date End Date Hua Antonio MD [address] [place] [id number] PCP - General Internal Medicine 10/25/19
--- OUTSIDE RECORDS SUMMARY | 2024-09-18 11:42 | XMS_ITS | Clinical Summary ---
Author Organization [facility] Address [address] [place] [address] Care Team Providers Care Oxygen System Tester Name Role Phone Hua Antonio MD Primary Care Provider [phone] Allergies Active Allergy Reactions Criticality Noted Date Comments Penicillins 11/21/2016 Medications Medication Sig Dispensed Refills Start Date End Date Status ibuprofen (ADVIL,MOTRIN) 200 MG tablet Take 200 mg by mouth every 6 (six) hours as needed for pain. 0 Active tamsulosin (FLOMAX) 0.4 MG CAPS Take 0.4 mg by mouth daily. 0 Active Multiple Vitamin (MULTI VITAMIN DAILY PO) Take by mouth. 0 Active Ascorbic Acid (VITAMIN C) 1000 MG tablet Take 1,000 mg by mouth daily. 0 Active cholecalciferol (VITAMIN D3) 1000 UNITS tablet Take 1,000 Units by mouth daily. 0 Active finasteride (PROSCAR) 5 MG tablet Take 5 mg by mouth daily. 0 Active Zinc Sulfate (ZINC 15 PO) Take by mouth. 0 Active omeprazole (PriLOSEC) 20 MG capsule Take 20 mg by mouth daily. 0 Active Active Problems No known active problems Social History Tobacco Use Types Packs/Day Years Used Date Smoking Tobacco: Never Smokeless Tobacco: Never Alcohol Use Standard Drinks/Week Comments Yes 0 (1 standard drink = 0.6 oz pur e alcohol) social Sex and Gender Information Value Date Recorded Sex Assigned at Not on file Gender Identity Not on file Sexual Orientation Not on file Job Start Date Occupation Industry Not on file Not on file Not on file Last Filed Vital Signs Vital Sign Reading Time Taken Comments Blood Pressure 133/88 06/07/2023 9:11 AM EDT Pulse 74 06/07/2023 9:11 AM EDT Temperature 36.6 C (97.8 F) 06/07/2023 9:11 AM EDT Respiratory Rate - - Oxygen Saturation 91% 06/07/2023 9:11 AM EDT Inhaled Oxygen Concentration - - Weight 58.1 kg (128 lb) 06/07/2023 9:11 AM EDT Height 167.6 cm (5' 6 ) 06/07/2023 9:11 AM EDT Body Mass Index 20.66 06/07/2023 9:11 AM EDT Plan of Treatment Health Maintenance Due Date Last Done Comments Hepatitis C Screening 1955 Depression Screening 1967 Preventative Health Evaluation 05/13/1973 Colon Cancer Screening (Colonoscopy) 05/13/2000 Shingrix-Zoster Vaccine (1 o f 2) 05/13/2005 Fall Risk Assessment 05/13/2020 Pneumococcal Vaccine (1 of 1 - PCV) 05/13/2020 COVID-19 Vaccine ( - 2023-2 5 season) 2023 03/23/2021, 08/20/2020, 07/30/2020 Influenza Vaccine (#1) 2024 8, 11/19/2016 DTap / Tdap / Td (2 - Td or Tdap) 05/27/2027 05/26/2017 RSV Adult > 60+ Yrs or (1 - 1-dose 75+ series) 05/13/2030 Hepatitis B Vaccines Aged Out No long er eligible based on patient's age to complete this topic RSV Ped < 20 months Aged Out No longe r eligible based on patient's age to complete this topic Care Teams Oxygen System Tester Relationship Specialty Start Date End Date Hua Antonio MD PCP - General Internal Medicine 07/28/20
--- OUTSIDE RECORDS SUMMARY | 2024-09-18 11:42 | XMS_ITS ---
Author Name [facility] Organization Unknown Care Team Organization Name Specialty Phone Email Start Date End Da te [facility] Brando Jimenez Primary Care 04/20/202210/01 [facility] Hua Antonio Primary Care 12/21/2021 10/02/19 24
== END 2024-09-18 11:34 | disposition home or self-care (01) ==
LOC: HO.HUSH 11:00
PROVIDERS: PCP Internal Medicine; Visit Provider Urology
DX: R39.12 Poor urinary stream (principal); R39.15 Urgency of urination; R39.14 Feeling of incomplete bladder emptying; N40.1 Benign prostatic hyperplasia with lower urinary tract symptoms; C61 Malignant neoplasm of prostate
CPT/HCPCS: 99213; G2211

== ENCOUNTER → 2024-09-18 10:59 | Outpatient (BNVA) | payer MEDICARE, OTHER, SELFPAY | PROVIDERS: PCP Internal Medicine; Visit Provider Urology | DX: N40.1 Benign prostatic hyperplasia with lower urinary tract symptoms (principal); C61 Malignant neoplasm of prostate | CPT/HCPCS: 81003; 99212 ==